=== PATIENT | female | born 2000 | race Caucasian/White ===

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

== ENCOUNTER 2020-04-26 15:00 | Emergency (ER) | payer BC, SELFPAY ==
[2020-04-26 15:40] VITALS: BP 128/82; PULSE 80; RESP 20; TEMP 36.9; O2SAT 99; BMI 47.2
--- NOTE | 2020-04-26 15:47 | HMH.EDUTC ---
[facility] [place] Disposition Clinical Impression: Strep throat Disposition: Home, Self-Care Condition on Discharge: Good Instructions: Strep Throat, DI for Strep Throat Additional Instructions: Drink plenty of fluids. Take tylenol or ibuprofen for pain or fever. Take the medications as directed. Follow up with your regular doctor. GO TO THE ER FOR ANY WORSENING SYMPTOMS Throw your tooth brush away and get a new one. Prescriptions: predniSONE [Deltasone 10mg tablet] 10 mg PO BID 3 Days #6 tab Transmission Status: Received by [facility] Azithromycin [Z-Sukhdev 250mg Tab*] 250 mg PO UD DOSE PK #6 tab Transmission Status: Received by [facility] Referrals: Kiar Mc APRN [Primary Care Provider] - Time of Disposition: 16:03 Medical Decision Making - Medical Records Medical records reviewed: No: I reviewed the patient's medical records. - Bhupinder Inquiry Pt receiving controlled substance: No Vital Signs: 04/26/20 15:40 04/26/20 16:22 Temperature 98.4 F 98.4 F Temperature Source Oral Pulse Rate 80 Pulse Rate [Right Brachial] 80 Respiratory Rate 20 20 Blood Pressure 128/82 Blood Pressure [Right Arm] 128/82 Blood Pressure Mean [Right Arm] 97 Blood Pressure Source [Right Arm] Automatic Cuff Blood Pressure Position [Right Arm] Sitting 02 Sat by Pulse Oximetry 99 Oxygen Delivery Method Room Air - Lab Data Lab results reviewed: Yes: I reviewed the patient's lab results. Lab Results 04/26/20 16:02: Strep Scn Rapid Clinic Negative Orders (Tests/Meds): ORDERS Category Date Time Status Strep Screen Confirmation Stat Micro 04/26/20 16:02 Received [facility] [place] HPI - General Stated complaint: sore throat Time Seen by Provider: 04/26/20 15:47 Mode of Arrival: Ambulatory Source of Information: Patient Limitations: No Limitations Description of Symptoms (Recalled from Triage Doc. by RN): PATIENT C/O THROAT IRRITATION SINCE THIS MORNING. DENIES ANY OTHER SYMPTOMS HEENT Symptoms (Recalled from RN notes): Yes Resp Symptoms (Recalled from RN notes): No Skin Symptoms (Recalled from RN notes): No MS Symptoms (Recalled from RN notes): No Functional Status (Recalled from RN notes): WNL - History of Present Illness Provider Complaint: She c/o sore throat since this morning. She states that she gets strep throat frequently. - Related Data Home Medications Medication Instructions Recorded Confirmed norgestimate-ethinyl estradioL 1 tab PO DAILY 11/07/19 11/07/19 [Tri-Sprintec Tablet] Previous Rx's Medication Instructions Recorded Azithromycin [Z-Sukhdev 250mg Tab*] 250 mg PO UD DOSE PK #6 tab 04/26/20 predniSONE [Deltasone 10mg tablet] 10 mg PO BID 3 Days #6 tab 04/26/20 Allergies Allergy/AdvReac Type Severity Reaction Status Date / Time amoxicillin Allergy Verified 09/18/19 12:23 - Worker's Comp Is this a Worker's Comp case?: No [facility] History - Hepatitis A Screen Drug use history?: No High risk sexual behaviors?: No History of sexually transmitted infection?: No Currently employed?: No Childcare worker?: No Do you have indoor plumbing?: Yes Do you have electricity?: Yes Attestation statement:: This patient has been screened for Hepatitis A risk factors. I have reviewed the patient's past medical history: Yes Other Surgeries: Yes: No Previous Surgery, Other Amputation: No Fractures: Yes (left wrist) Comment: Bone spur on left index finger removed. - Social History Smoking Status: Never smoker Alcohol Intake: never Substance Use Type: denies use Occupational Status: other Housing: house Household Members: family Family Hx:: Cancer, Diabetes, Heart Attack, Stroke, Hypertension ROS Obtained: Yes All systems reviewed & no additional complaints - Constitutional Constitutional: Reports chills, Denies fever(s), Reports poor appetite, Reports malaise - Eyes Eyes: Denies eye discharge - ENT Ears, Nose, Mouth, and Throat: Reports a
[2020-04-26 16:22] VITALS: BP 128/82; PULSE 80; RESP 20; TEMP 36.9; O2SAT 99
[2020-04-26 16:25] LABS: UTC Strep Screen (Rapid) Negative (Negative)
== END 2020-04-26 16:25 | disposition home or self-care (01) ==
PROVIDERS: Emergency Provider Nurse Practitioner Family; PCP Nurse Practitioner
DX: J02.0 Streptococcal pharyngitis (principal)
CPT/HCPCS: 87880; 99201

== ENCOUNTER 2020-06-14 14:50 | Emergency (ER) | payer BC, SELFPAY ==
[2020-06-14 15:22] VITALS: PULSE 98; RESP 14; TEMP 36.8; O2SAT 97; BMI 46.8
--- NOTE | 2020-06-14 15:35 | HMH.EDUTC ---
[facility] [place] Clinical Impression: URI (upper respiratory infection) Qualifiers: URI type: unspecified URI Qualified Code(s): J06.9 - Acute upper respiratory infection, unspecified Disposition: Home, Self-Care Condition on Discharge: Good Instructions: Sore Throat, DI for Strep Throat, Azithromycin Additional Instructions: *Monitor Temp, Over the counter Motrin or Tylenol as directed/as needed Tylenol every 4 hours and Motrin every 6 hours (as long as your family doctor has told you that you can take it) for fever or pain. and straight to ER if unable to lower temp less than 101.0 after medication given *Warm salt water gargles may help to soothe the throat *Throat Lozenges *Warm fluids like tea with honey may help to soothe the throat *Sleep elevated *Humidifier/Vaporizer Your throat swab was sent for culture. Those results are typically sent to your primary care. Be sure to follow up in 2-3 days with your family doctor/primary care physician if no improvement so they can review those result and treat if necessary. If you don?t have a primary care doctor, I recommend you get one but in the mean time, you will have to return to a walk in clinic Follow up IMMEDIATELY for new or worsening symptoms or no Noticeable improvement over the next 48-72 hours. 911 for difficulty breathing or swallowing Prescriptions: Azithromycin [Z-Sukhdev 250mg Tab] 250 mg PO DIRECTED #6 tab Transmission Status: Pending to [facility] Referrals: Kira Mc APRN [Primary Care Provider] - As needed Time of Disposition: 15:49 Medical Decision Making - Bhupinder Inquiry Pt receiving controlled substance: No Bhupinder was queried for this patient: No Vital Signs: 06/14/20 15:22 Temperature 98.3 F Temperature Source Oral Pulse Rate [Right Brachial] 98 H Respiratory Rate 14 02 Sat by Pulse Oximetry 97 Oxygen Delivery Method Room Air - Lab Data Lab results reviewed: Yes: I reviewed the patient's lab results. Lab Results 06/14/20 15:28: Strep Scn Rapid Clinic Negative Orders (Tests/Meds): ORDERS Category Date Time Status Strep Screen Confirmation Stat Micro 06/14/20 15:28 [place] [facility] [place] - General Stated complaint: sore throat Time Seen by Provider: 06/14/20 15:35 Mode of Arrival: Ambulatory Source of Information: Patient Limitations: No Limitations Description of Symptoms (Recalled from Triage Doc. by RN): PATIENT C/O SORE THROAT WITH BLISTERS THAT STARTED TODAY HEENT Symptoms (Recalled from RN notes): Yes Resp Symptoms (Recalled from RN notes): No Skin Symptoms (Recalled from RN notes): No MS Symptoms (Recalled from RN notes): No Functional Status (Recalled from RN notes): WNL - History of Present Illness Provider Complaint: Patient states that she has been having sore throat for several days and noticed earlier that she had some blisters on the back of her throat States that her throat is hurting worse today and she was worried that she may have strep throat - Related Data Previous Rx's Medication Instructions Recorded Azithromycin [Z-Sukhdev 250mg Tab] 250 mg PO DIRECTED #6 tab 06/14/20 Allergies Allergy/AdvReac Type Severity Reaction Status Date / Time amoxicillin Allergy Verified 09/18/19 12:23 - Worker's Comp Is this a Worker's Comp case?: No [facility] History - Hepatitis A Screen Drug use history?: No High risk sexual behaviors?: No History of sexually transmitted infection?: No Currently employed?: No Childcare worker?: No Do you have indoor plumbing?: Yes Do you have electricity?: Yes Attestation statement:: This patient has been screened for Hepatitis A risk factors. I have reviewed the patient's past medical history: Yes Other Surgeries: Yes: No Previous Surgery, Other Amputation: No Fractures: Yes (left wrist) Comment: Bone spur on left index finger removed. - Social History Smoking Status: Never smoker Alcohol Intake: never Substance Use Type:
[2020-06-14 15:41] LABS: UTC Strep Screen (Rapid) Negative (Negative)
[2020-06-14 15:58] VITALS: BP 00/00; PULSE 98; RESP 14; TEMP 36.8; O2SAT 97
== END 2020-06-14 16:00 | disposition home or self-care (01) ==
PROVIDERS: Emergency Provider Nurse Practitioner; PCP Nurse Practitioner
DX: J06.9 Acute upper respiratory infection, unspecified (principal); Z88.1 Allergy status to other antibiotic agents
CPT/HCPCS: 87880; 99201

== ENCOUNTER 2020-08-10 09:13 | Emergency (ER) | payer BC, SELFPAY ==
[2020-08-10 09:27] VITALS: BP 126/72; PULSE 80; RESP 19; TEMP 36.9; O2SAT 98; BMI 46.3
--- NOTE | 2020-08-10 09:51 | HMH.EDUTC ---
[facility] [place] Clinical Impression: URI (upper respiratory infection) Qualifiers: URI type: unspecified URI Qualified Code(s): J06.9 - Acute upper respiratory infection, unspecified Disposition: Home, Self-Care Condition on Discharge: Good Instructions: Sinusitis, DI for Sinusitis, Azithromycin Additional Instructions: *Monitor Temp, Over the counter Motrin or Tylenol as directed/as needed Tylenol every 4 hours and Motrin every 6 hours (as long as your family doctor has told you that you can take it) for fever or pain. and straight to ER if unable to lower temp less than 101.0 after medication given *Warm salt water gargles may help to soothe the throat *Throat Lozenges *Warm fluids like tea with honey may help to soothe the throat *Sleep elevated *Humidifier/Vaporizer *Flonase 2 sprays in each nostril daily but be aware that it may take 2-3 days before you notice improvement Take medication as prescribed Follow up IMMEDIATELY for new or worsening symptoms or no Noticeable improvement over the next 48-72 hours. 911 for difficulty breathing or swallowing Prescriptions: Fluticasone Propionate [Flonase 50mcg nasal spray 16gm] 1 spr NS DAILY #1 bottle Transmission Status: [facility] methylPREDNISolone [Medrol 4mg tab] 4 mg PO DIRECTED #21 tab Transmission Status: [facility] Azithromycin [Z-Sukhdev 250mg Tab] 250 mg PO DIRECTED #6 tab Transmission Status: [facility] Referrals: Kira Mc APRN [Primary Care Provider] - As needed Time of Disposition: 10:03 Medical Decision Making - Bhupinder Inquiry Pt receiving controlled substance: No Bhupinder was queried for this patient: No Vital Signs: 08/10/20 09:27 Temperature 98.4 F Temperature Source Oral Pulse Rate [Radial] 80 Respiratory Rate 19 Blood Pressure [Right Arm] 126/72 Blood Pressure Mean [Right Arm] 90 Blood Pressure Source [Right Arm] Automatic Cuff Blood Pressure Position [Right Arm] Sitting 02 Sat by Pulse Oximetry 98 Oxygen Delivery Method Room Air [facility] [place] HPI - General Stated complaint: runny nose Time Seen by Provider: 08/10/20 09:51 Mode of Arrival: Ambulatory Source of Information: Patient Limitations: No Limitations Description of Symptoms (Recalled from Triage Doc. by RN): sinus infection x 2 days HEENT Symptoms (Recalled from RN notes): Yes Resp Symptoms (Recalled from RN notes): No Skin Symptoms (Recalled from RN notes): No MS Symptoms (Recalled from RN notes): No Functional Status (Recalled from RN notes): wnl - History of Present Illness Provider Complaint: Patient states that she has been having sinus pain and pressure along with drainage for several days States that she has continued to get worse States that she gets this a couple times of years and has to come in and get checked - Related Data Previous Rx's Medication Instructions Recorded Azithromycin [Z-Sukhdev 250mg Tab] 250 mg PO DIRECTED #6 tab 08/10/20 Fluticasone Propionate [Flonase 1 spr NS DAILY #1 bottle 08/10/20 50mcg nasal spray 16gm] methylPREDNISolone [Medrol 4mg 4 mg PO DIRECTED #21 tab 08/10/20 tab] Allergies Allergy/AdvReac Type Severity Reaction Status Date / Time amoxicillin Allergy Verified 07/24/20 15:54 - Worker's Comp Is this a Worker's Comp case?: No [facility] History - Hepatitis A Screen Drug use history?: No High risk sexual behaviors?: No History of sexually transmitted infection?: No Currently employed?: No Childcare worker?: No Do you have indoor plumbing?: Yes Do you have electricity?: Yes Attestation statement:: This patient has been screened for Hepatitis A risk factors. I have reviewed the patient's past medical history: Yes Other Surgeries: Yes: No Previous Surgery, Other Amputation: No Fractures: Yes (left wrist) Comment: Bone spur on left index finger removed. - Social History Smoking Status: Never smoker Alcohol Intake: alfonso
[2020-08-10 10:31] VITALS: BP 126/72; PULSE 80; RESP 19; TEMP 36.9; O2SAT 98
== END 2020-08-10 10:32 | disposition home or self-care (01) ==
PROVIDERS: Emergency Provider Nurse Practitioner; PCP Nurse Practitioner
DX: J06.9 Acute upper respiratory infection, unspecified (principal)
CPT/HCPCS: 99201

== ENCOUNTER → 2020-12-23 09:49 | Outpatient (POV) | payer BC, SELFPAY | PROVIDERS: Visit Provider Dermatology | DX: Z00.00 Encounter for general adult medical examination without abnormal findings (principal) ==

== ENCOUNTER 2021-01-10 13:04 | Emergency (ER) | payer BC, SELFPAY ==
[2021-01-10 13:52] VITALS: BP 124/75; PULSE 84; RESP 19; TEMP 37; O2SAT 99; BMI 45.0
--- NOTE | 2021-01-10 14:12 | HMH.EDUTC ---
[facility] [place] Clinical Impression: Strep throat Sinusitis Qualifiers: Sinusitis location: maxillary Chronicity: acute Recurrence: non-recurrent Qualified Code(s): J01.00 - Acute maxillary sinusitis, unspecified Disposition: Home, Self-Care Condition on Discharge: Good Instructions: Sinusitis, DI for Sinusitis Additional Instructions: Start antibiotic patient to take as ordered for a full length of time even if you feel better. Sinus infections do not get better overnight. It may take 2-3 days to notice much improvement so be sure to use conservative measures as discussed for symptoms. Flonase 1 spray each nostril daily to help with nasal congestion, sinus and ear pressure/information Increase fluids Humidifier/vaporizer as needed Tylenol and ibuprofen as needed for fever or pain. If symptoms do not improve or get worse return or be seen in the ER Follow-up with primary care this week her request and will get her sent over Prescriptions: Fluticasone Propionate [Flonase 50mcg nasal spray 16gm] 1 spr NS DAILY 14 Days #1 bottle Transmission Status: Pending to [facility] Azithromycin [Zithromax 250mg tab] 250 mg PO DIRECTED #6 tab Transmission Status: Pending to [facility] Referrals: Kira Mc APRN [Primary Care Provider] - Time of Disposition: 14:17 Medical Decision Making - Bhupinder Inquiry Pt receiving controlled substance: No Vital Signs: 01/10/21 13:52 Temperature 98.6 F Temperature Source Oral Pulse Rate [Right] 84 Respiratory Rate 19 Blood Pressure [Right Arm] 124/75 Blood Pressure Mean [Right Arm] 91 Blood Pressure Source [Right Arm] Automatic Cuff 02 Sat by Pulse Oximetry 99 Oxygen Delivery Method Room Air [facility] [place] - General Chief complaint: [facility] Stated complaint: possible sinus infection Time Seen by Provider: 01/10/21 14:12 Mode of Arrival: Ambulatory Source of Information: Patient Limitations: No Limitations Description of Symptoms (Recalled from Triage Doc. by RN): pt c/o sinus pressure and drainage. she thinks she has a sinus infection. HEENT Symptoms (Recalled from RN notes): Yes (sinus pressure) Resp Symptoms (Recalled from RN notes): No Skin Symptoms (Recalled from RN notes): No MS Symptoms (Recalled from RN notes): No Functional Status (Recalled from RN notes): na - History of Present Illness Provider Complaint: 20 yr old female presents for sore throat, sinus pressure,congestion,tenderness and yellow/green discharge - Related Data Previous Rx's Medication Instructions Recorded Azithromycin [Z-Sukhdev 250mg Tab] 250 mg PO DIRECTED #6 tab 08/10/20 Fluticasone Propionate [Flonase 1 spr NS DAILY #1 bottle 08/10/20 50mcg nasal spray 16gm] methylPREDNISolone [Medrol 4mg 4 mg PO DIRECTED #21 tab 08/10/20 tab] Azithromycin [Zithromax 250mg 250 mg PO DIRECTED #6 tab 01/10/21 tab] Fluticasone Propionate [Flonase 1 spr NS DAILY 14 Days #1 bottle 01/10/21 50mcg nasal spray 16gm] Allergies Allergy/AdvReac Type Severity Reaction Status Date / Time amoxicillin Allergy Verified 07/24/20 15:54 - Worker's Comp Is this a Worker's Comp case?: No [facility] History - Hepatitis A Screen Drug use history?: No High risk sexual behaviors?: No History of sexually transmitted infection?: No Currently employed?: No Childcare worker?: No Do you have indoor plumbing?: Yes Do you have electricity?: Yes Attestation statement:: This patient has been screened for Hepatitis A risk factors. I have reviewed the patient's past medical history: Yes Other Surgeries: Yes: No Previous Surgery, Other Amputation: No Fractures: Yes (left wrist) Comment: Bone spur on left index finger removed. - Social History Smoking Status: Unknown if ever smoked Alcohol Intake: never Substance Use Type: denies use Occupational Status: employed Housing: house Household Members: family Family Hx:: Cancer, Diabetes, Heart Zaki
[2021-01-10 14:20] VITALS: BP 119/74; PULSE 82; RESP 16; TEMP 36.6
== END 2021-01-10 14:23 | disposition home or self-care (01) ==
PROVIDERS: Emergency Provider Nurse Practitioner Family; PCP Nurse Practitioner
DX: J02.0 Streptococcal pharyngitis (principal); J01.00 Acute maxillary sinusitis, unspecified; Z88.1 Allergy status to other antibiotic agents
CPT/HCPCS: 99202; G0463

== ENCOUNTER 2021-01-25 19:43 | Emergency (ER) | payer BC, SELFPAY ==
[2021-01-25 19:45] VITALS: BP 128/80; PULSE 95; RESP 20; TEMP 36.7; O2SAT 97; BMI 46.0
--- NOTE | 2021-01-25 20:19 | HMH.EDUTC ---
[facility] [place] Clinical Impression: Vaginal yeast infection Disposition: Home, Self-Care Condition on Discharge: Good Instructions: DI for Vaginal Yeast Infection, Vaginal Yeast Infection, Fluconazole Additional Instructions: Take medication as prescribed Avoid sexual activity while undergoing treatment Follow up with Family Doctor or OBGYN if symptoms continue and do not improve Return if needed Straight to ER if any life threatening symptoms Prescriptions: Fluconazole [Diflucan 150mg tab] 150 mg PO DIRECTED #2 tab Transmission Status: Pending to [facility] Referrals: Kira Mc APRN [Primary Care Provider] - As needed Time of Disposition: 20:35 Medical Decision Making - Bhupinder Inquiry Pt receiving controlled substance: No Bhupinder was queried for this patient: No Vital Signs: 01/25/21 19:45 Temperature 98.1 F Temperature Source Oral Pulse Rate [Left Brachial] 95 H Respiratory Rate 20 Blood Pressure [Left Arm] 128/80 Blood Pressure Mean [Left Arm] 96 Blood Pressure Source [Left Arm] Automatic Cuff Blood Pressure Position [Left Arm] Sitting 02 Sat by Pulse Oximetry 97 Oxygen Delivery Method Room Air Medical Decision Narrative: Patient states that she has taken diflucan before [facility] [place] HPI - General Stated complaint: yeast inf Time Seen by Provider: 01/25/21 20:19 Mode of Arrival: Ambulatory Source of Information: Patient Limitations: No Limitations Description of Symptoms (Recalled from Triage Doc. by RN): PATIENT C/O YEAST INFECTION X 1 WEEK. SHE REPORTS TAKING MONISTAT AND DIFLUCAN WITH NO IMPROVEMENT HEENT Symptoms (Recalled from RN notes): No Resp Symptoms (Recalled from RN notes): No Skin Symptoms (Recalled from RN notes): No MS Symptoms (Recalled from RN notes): No Functional Status (Recalled from RN notes): WNL - History of Present Illness Provider Complaint: Patient states she has been having a vaginal yeast infection for about a week States that she took a diflucan on Tuesday and has used over the counter Monostat but still having some white thick discharge and burning with itching States that she sometimes gets these before her period every month - Related Data Previous Rx's Medication Instructions Recorded Fluconazole [Diflucan 150mg tab] 150 mg PO DIRECTED #2 tab 01/25/21 Allergies Allergy/AdvReac Type Severity Reaction Status Date / Time amoxicillin Allergy Verified 07/24/20 15:54 - Worker's Comp Is this a Worker's Comp case?: No [facility] History - Hepatitis A Screen Drug use history?: No High risk sexual behaviors?: No History of sexually transmitted infection?: No Currently employed?: No Childcare worker?: No Do you have indoor plumbing?: Yes Do you have electricity?: Yes Attestation statement:: This patient has been screened for Hepatitis A risk factors. I have reviewed the patient's past medical history: Yes Other Surgeries: Yes: No Previous Surgery, Other Amputation: No Fractures: Yes (left wrist) Comment: Bone spur on left index finger removed. - Social History Smoking Status: Unknown if ever smoked Alcohol Intake: never Substance Use Type: denies use Occupational Status: other Housing: house Household Members: family Family Hx:: Cancer, Diabetes, Heart Attack, Stroke, Hypertension ROS Obtained: Yes All systems reviewed & no additional complaints, Yes Systems reviewed as appropriate & no additional complaints - Constitutional Constitutional: Reports system reviewed and no additional complaints, except as docu - Cardiovascular Cardiovascular: Reports system reviewed and no additional complaints, except as docu - Respiratory Respiratory: Reports system reviewed and no additional complaints, except as docu - Genitourinary Female Genitourinary: Reports vaginal discharge, Reports vaginal itching Physical Exam - General General appearance: alert, in no apparent distress - Respiratory Respiratory exam: Present:
[2021-01-25 20:34] VITALS: BP 128/80; PULSE 95; RESP 20; TEMP 36.7; O2SAT 97
== END 2021-01-25 20:40 | disposition home or self-care (01) ==
PROVIDERS: Emergency Provider Nurse Practitioner; PCP Nurse Practitioner
DX: B37.3 Candidiasis of vulva and vagina (principal)
CPT/HCPCS: 99202; G0463

== ENCOUNTER → 2021-03-23 13:14 | Outpatient (CLI) | payer BC, SELFPAY ==
[2021-03-23 13:24] LABS: Microscopic, Urine URINE MICROSCOPIC (MICROSCOPIC)
[2021-03-23 13:44] LABS: Basophils # 0.1 K/mm3 (0-0.2); Basophils % 0.4 % (0.1-2.0); Eosinophils # 0.1 K/mm3 (0.0-0.4); Eosinophils % 0.7 % (0.1-12.0); Hematocrit 39.1 % (37.0-47.0); Lymphocytes # 2.8 K/mm3 (0.7-4.5); Lymphocytes % 22.3 % (10-50); Mean Corpuscular HGB Conc 33.2 g/dL (31.8-35.4); Mean Corpuscular Hemoglobin 27.3 pg (27.0-31.2); Mean Corpuscular Volume 82.3 fl (81-99); Mean Platelet Volume 8.2 fl (7.4-10.4); Monocytes # 0.6 K/mm3 (0.1-1.0); Monocytes % 4.4 % (1.7-9.3); Neutrophils % 72.1 % (37.0-80.0); Platelet Count 278 K/mm3 (142-424); Red Blood Count 4.76 M/mm3 (4.20-5.40); Red Cell Distribution Width 14.4 % (11.5-17.5); White Blood Count 12.5 K/mm3 (4.8-10.8)
[2021-03-23 13:49] LABS: Appearance,Urine SL CLOUDY (Clear); Blood, Urine 1+ (Negative); Color,Urine DK YELLOW (Yellow); Glucose,Urine (UA) Negative (Negative); Ketones,Urine Negative (Negative); Leukocyte Esterase,Urine Negative (Negative); Nitrate,Urine Negative (Negative); PH,Urine 5.5 (5.0-8.5); Protein,Urine Negative (Negative); Specific Gravity, Urine >= 1.030 (1.005-1.030); Urobilinogen,Urine 0.2 EU/dl (0.2)
[2021-03-23 13:53] LABS: Bilirubin,Urine 1+ (Negative)
[2021-03-23 14:18] LABS: Bacteria,Urine Trace /lpf
[2021-03-23 14:40] LABS: Chloride 106 mmol/L (98-107); Sodium 139 mmol/L (136-145)
[2021-03-23 14:41] LABS: Potassium 4.1 mmoL/L (3.5-5.1)
[2021-03-23 14:43] LABS: Alanine Aminotransferase 20 U/L (12-78); Albumin Level 4.2 g/dl (3.5-5.0); Albumin/Globulin Ratio 1.4 (1.1-1.8); Alkaline Phosphatase 84 U/L (38-126); Anion Gap 12.1 mEq/L (5-15); Aspartate Amino Transferase 25 U/L (14-36); Bilirubin,Total 0.5 mg/dl (0.2-1.3); Blood Urea Nitrogen 8 mg/dl (7-17); Carbon Dioxide 25 mmol/L (22.0-30.0); Estimated Glomerular Filt Rate 125 ml/min (>60); GFR (African American) 151 ML/MIN (>60); Globulin 3.1 g/dL (1.3-3.2); Total Protein,Serum 7.3 g/dl (6.3-8.2)
[2021-03-23 14:44] LABS: Calcium 8.9 mg/dl (8.4-10.2); Glucose 86 mg/dl (74-100)
[2021-03-25 07:03] LABS: HIV Screen 4th Generation wRfx Non Reactive (Non Reactive)
[2021-03-25 15:38] LABS: EBV Ab VCA, IgG >600.0 U/mL (0.0-17.9); EBV Ab VCA, IgM <36.0 U/mL (0.0-35.9); EBV Nuclear Antigen Ab, IgG 53.3 U/mL (0.0-17.9)
[2021-03-26 21:26] LABS: CMV Quant DNA PCR (Plasma) Negative (Negative)
== END ==
PROVIDERS: Visit Provider Internal Medicine Adolescent Medicine
DX: J02.9 Acute pharyngitis, unspecified (principal); A68.9 Relapsing fever, unspecified; R30.0 Dysuria; Z11.4 Encounter for screening for human immunodeficiency virus [HIV]
CPT/HCPCS: 36415; 80053; 81001; 85025; 86664; 86665; 86695; 86696; 86703; 87070; 87077; 87186; 87252; 87497; G0432

== ENCOUNTER 2021-08-06 08:59 | Emergency (ER) | payer BC, SELFPAY ==
[2021-08-06 09:10] VITALS: BP 142/86; PULSE 120; RESP 18; TEMP 36.6; O2SAT 100; BMI 47.9
[2021-08-06 09:28] LABS: UTC Strep Screen (Rapid) Positive (Negative)
--- NOTE | 2021-08-06 09:34 | HMH.EDUTC ---
[facility] [place] Clinical Impression: Strep throat Disposition: Home, Self-Care Condition on Discharge: Good Instructions: Strep Throat, DI for Strep Throat, Azithromycin Additional Instructions: *Monitor Temp, Over the counter Motrin or Tylenol as directed/as needed Tylenol every 4 hours and Motrin every 6 hours (as long as your family doctor has told you that you can take it) for fever or pain. and straight to ER if unable to lower temp less than 101.0 after medication given *Warm salt water gargles may help to soothe the throat *Throat Lozenges *Warm fluids like tea with honey may help to soothe the throat *Sleep elevated *Humidifier/Vaporizer *If you did not take Penicillin shot or was unable to, start taking antibiotic immediately and make sure that you take it for the FULL length of time although you should start to feel better in 24-48 hours *change toothbrush and toothpaste 24-48 hours after starting to take antibiotics so you do not reinfect yourself Monitor Temp. Tylenol and/or Ibuprofen as needed. ER if fever is no less than 101 despite alternating Tylenol and Ibuprofen * Encourage fluids, water, Gatorade, powerade, pedialyte if /toddler/or child *Cold fluids, popsicles and ice cream may feel good on his throat Follow up IMMEDIATELY for new or worsening symptoms or no Noticeable improvement over the next 48-72 hours. 911 for difficulty breathing or swallowing Prescriptions: Azithromycin [Z-Sukhdev 250mg Tab] 250 mg PO DIRECTED #6 tab Transmission Status: Pending to [facility] Referrals: Kira Mc APRN [Primary Care Provider] - As needed Forms: Work/School Release Time of Disposition: 09:39 Medical Decision Making - Bhupinder Inquiry Pt receiving controlled substance: No Bhupinder was queried for this patient: No Vital Signs: 08/06/21 09:10 Temperature 98 F Temperature Source Oral Pulse Rate [Left] 120 H Respiratory Rate 18 Blood Pressure [Right Arm] 142/86 H Blood Pressure Mean [Right Arm] 104 02 Sat by Pulse Oximetry 100 - Lab Data Lab results reviewed: Yes: I reviewed the patient's lab results. Lab Results 08/06/21 09:22: Strep Scn Rapid Clinic Positive A [facility] [place] - General Stated complaint: sore throat Time Seen by Provider: 08/06/21 09:34 Mode of Arrival: Ambulatory Source of Information: Patient Limitations: No Limitations Description of Symptoms (Recalled from Triage Doc. by RN): pt c/o of a sore throat. pt states multiple people at her work have strep. tonsils appear appear swollen and red. pt also states she is having an HSV outbreak and has blisters in her mouth and on her tongue. HEENT Symptoms (Recalled from RN notes): Yes (sore throat. blisters in mouth from hsv outbreak.) Resp Symptoms (Recalled from RN notes): No Skin Symptoms (Recalled from RN notes): No MS Symptoms (Recalled from RN notes): No Functional Status (Recalled from RN notes): na - History of Present Illness Provider Complaint: Patient states that she has a history of HSV and recently started having an outbreak and has been taking her Valtrex States that her throat is still sore and irritated and hurts when she swallows and feels different for previous outbreaks she has had Statse that several people at work has strep throat and she thinks she may have it too - Related Data Previous Rx's Medication Instructions Recorded Fluconazole [Diflucan 150mg tab] 150 mg PO DIRECTED #2 tab 01/25/21 Azithromycin [Z-Sukhdev 250mg Tab] 250 mg PO DIRECTED #6 tab 08/06/21 Allergies Allergy/AdvReac Type Severity Reaction Status Date / Time amoxicillin Allergy Verified 07/24/20 15:54 - Worker's Comp Is this a Worker's Comp case?: No [facility] History - Hepatitis A Screen Drug use history?: No High risk sexual behaviors?: No History of sexually transmitted infection?: No Currently employed?: No Childcare worker?: No Do you have indoor plumbing?: Yes Do you have electricity?
[2021-08-06 09:46] VITALS: BP 142/86; PULSE 120; RESP 18; TEMP 36.6
== END 2021-08-06 10:05 | disposition home or self-care (01) ==
PROVIDERS: Emergency Provider Nurse Practitioner; PCP Nurse Practitioner
DX: J02.0 Streptococcal pharyngitis (principal)
CPT/HCPCS: 87880; 99202; G0463

== ENCOUNTER 2021-08-07 16:47 | Emergency (ER) | payer BC, SELFPAY ==
--- NOTE | 2021-08-07 16:50 | XR_ITS ---
PROCEDURE INFORMATION: Exam: XR Left Hand Exam date and time: 08/07/2021 4:50 PM Age: 21 years old Clinical indication: Injury or trauma; Fall; Blunt trauma (contusions or hematomas); Hand; Left; Injury date: 08/06/21 TECHNIQUE: Imaging protocol: XR Left hand. Views: 3 or more views. COMPARISON: CR [id number] XR wrist LT 2V 12/27/2017 1:28 PM FINDINGS: Bones/joints: There is no evidence of acute fracture. There is no evidence of joint malalignment or dislocation. Soft tissues: No focal soft tissue swelling. IMPRESSION: 1. No evidence of acute fracture. 2. No evidence of acute dislocation.
--- NOTE | 2021-08-07 16:50 | XR_ITS ---
PROCEDURE INFORMATION: Exam: XR Left Wrist Exam date and time: 08/07/2021 4:50 PM Age: 21 years old Clinical indication: Injury or trauma; Fall; Blunt trauma (contusions or hematomas); Wrist; Left; Injury date: 08/06/21 TECHNIQUE: Imaging protocol: XR Left wrist. Views: 3 or more views. COMPARISON: CR [id number] XR wrist LT 2V 12/27/2017 1:28 PM FINDINGS: Bones/joints: There is no evidence of acute fracture. There is no evidence of joint malalignment or dislocation. Soft tissues: No focal soft tissue swelling. IMPRESSION: 1. No evidence of acute fracture. 2. No evidence of acute dislocation.
--- NOTE | 2021-08-07 17:03 | XR_ITS ---
PROCEDURE INFORMATION: Exam: XR Left Forearm Exam date and time: 08/07/2021 5:03 PM Age: 21 years old Clinical indication: Injury or trauma; Fall; Blunt trauma (contusions or hematomas); Arm, lower; Left; Injury date: 08/06/21 TECHNIQUE: Imaging protocol: XR Left forearm. Views: 2 views. COMPARISON: CR XR WRIST LT MIN 3V 08/07/2021 4:56 PM FINDINGS: Bones/joints: There is no evidence of acute fracture. There is no evidence of joint malalignment or dislocation. Soft tissues: No focal soft tissue swelling. IMPRESSION: 1. No evidence of acute fracture. 2. No evidence of acute dislocation.
[2021-08-07 17:17] VITALS: BP 155/96; PULSE 107; RESP 20; TEMP 36.6; O2SAT 100; BMI 47.9
--- NOTE | 2021-08-07 17:33 | HMH.EDUTC ---
[facility] [place] Clinical Impression: Arm contusion Qualifiers: Encounter type: initial encounter Laterality: left Qualified Code(s): S40.022A - Contusion of left upper arm, initial encounter Wrist sprain Qualifiers: Encounter type: initial encounter Laterality: left Qualified Code(s): S63.502A - Unspecified sprain of left wrist, initial encounter Disposition: Home, Self-Care Condition on Discharge: Good Instructions: How To Perform RICE (Rest, Ice, Compress, Elevate), How to Apply an Jeevan Wrap Additional Instructions: *RICE, Rest the extremity, Ice 15-20 minutes 3-4 times daily, Compress- wear the jeevan wrap as discussed as much as possible to help reduce swelling and pain, Elevate the extremity when at rest *Jeevan wrap is for support and help control swelling, use it except in the shower. Be sure that is not to tight but not to loose either *Elevate when resting *Ibuprofen as directed on package every 6-8 hours as needed for pain an inflammation. If need something more can take Tylenol in between doses of Ibuprofen to help Immediately follow up with your family doctor for new or worsening of symptoms, or no noticeable improvement over the next 3-5 days Referrals: Kira Mc APRN [Primary Care Provider] - As needed Time of Disposition: 17:41 Medical Decision Making - Bhupinder Inquiry Pt receiving controlled substance: No Bhupinder was queried for this patient: No Vital Signs: 08/07/21 17:17 Temperature 98 F Temperature Source Temporal Artery Scan Pulse Rate [Left] 107 H Respiratory Rate 20 Blood Pressure [Right Arm] 155/96 H Blood Pressure Mean [Right Arm] 115 02 Sat by Pulse Oximetry 100 Orders (Tests/Meds): ORDERS Category Date Time Status Hand XR left minimum 3 views [XR hand LT min 3V] Stat Exams 08/07/21 16:50 Taken XR forearm LT 2V Stat Exams 08/07/21 17:03 Taken XR wrist LT min 3V Stat Exams 08/07/21 16:50 Taken - Radiology Data #1 Image(s): Forearm Image Reviewed: Yes I have reviewed radiologist's interpretation Preliminary Findings: No Fracture Seen IMPRESSION: 1. No evidence of acute fracture. 2. No evidence of acute dislocation. #2 Image(s): Wrist Image Reviewed: Yes I have reviewed radiologist's interpretation IMPRESSION: 1. No evidence of acute fracture. 2. No evidence of acute dislocation. #3 Image(s): Hand Image Reviewed: Yes I have reviewed radiologist's interpretation IMPRESSION: 1. No evidence of acute fracture. 2. No evidence of acute dislocation. [facility] [place]PI - General Stated complaint: AO fall injured L arm Time Seen by Provider: 08/07/21 17:34 Mode of Arrival: Ambulatory Source of Information: Patient Limitations: No Limitations Description of Symptoms (Recalled from Triage Doc. by RN): pt fell last night while letting the dogs outside. pt landed on her L arm. pt now c/o pain in her LFA, wrist and hand. HEENT Symptoms (Recalled from RN notes): No Resp Symptoms (Recalled from RN notes): No Skin Symptoms (Recalled from RN notes): No MS Symptoms (Recalled from RN notes): Yes (LFA, Lwrist and L hand pain) Functional Status (Recalled from RN notes): na - History of Present Illness Provider Complaint: Patient states that she was opening her back door last night letting her dogs out and she slipped and fell and landed on her left arm States that she has been having pain and bruising ever since States that hurts when she moves it States that she feels like there is a little knot on her wrist so she wanted to come in and get it checked out - Related Data Previous Rx's Medication Instructions Recorded Fluconazole [Diflucan 150mg tab] 150 mg PO DIRECTED #2 tab 01/25/21 Azithromycin [Z-Sukhdev 250mg Tab] 250 mg PO DIRECTED #6 tab 08/06/21 Allergies Allergy/AdvReac Type Severity Reaction Status Date / Time amoxicillin Allergy Verified 07/24/20 15:54 - Worker's Comp Is this a Worker's Comp case?: No [facility] History
[2021-08-07 17:43] VITALS: BP 112/60; PULSE 73; RESP 16; TEMP 36.8
== END 2021-08-07 17:46 | disposition home or self-care (01) ==
PROVIDERS: Emergency Provider Nurse Practitioner; PCP Nurse Practitioner
DX: S40.022A Contusion of left upper arm, initial encounter (principal); S63.502A Unspecified sprain of left wrist, initial encounter; W01.0XXA Fall on same level from slipping, tripping and stumbling without subsequent striking against object, initial encounter; Y92.018 Other place in single-family (private) house as the place of occurrence of the external cause
CPT/HCPCS: 73090; 73110; 73130; 99202; G0463

== ENCOUNTER → 2021-12-01 09:20 | Outpatient (CLI) | payer BC, SELFPAY ==
[2021-12-02 07:14] LABS: Rubella Antibodies, IgG 3.58 index (Immune >0.99)
[2021-12-02 09:13] LABS: Hepatitis B Surf Ab Quant <3.1 mIU/mL (Immunity>9.9)
[2021-12-02 16:36] LABS: Measles Antibodies, IgG >300.0 AU/mL (Immune >16.4); Mumps Abs, IgG 57.1 AU/mL (Immune >10.9); Varicella Zoster IgG 274 index (Immune >165)
[2021-12-03 22:07] LABS: QuantiFERON-TB Gold Plus Negative (Negative)
== END ==
PROVIDERS: Visit Provider Nurse Practitioner Family
DX: Z01.84 Encounter for antibody response examination (principal); Z11.59 Encounter for screening for other viral diseases
CPT/HCPCS: 36415; 86480; 86706; 86735; 86762; 86765; 86787

== ENCOUNTER 2022-04-17 09:14 | Emergency (ER) | payer BC, SELFPAY ==
[2022-04-17 10:20] VITALS: BP 130/84; PULSE 81; RESP 17; TEMP 36.7; O2SAT 99; BMI 47.9
--- NOTE | 2022-04-17 10:32 | HMH.EDUTC ---
[facility] [place] Impression: COVID-19 Disposition: Home, Self-Care Condition on Discharge: Good Instructions: DI for COVID-19 (Suspected or Confirmed ) Additional Instructions: Current CDC guidelines are to quarantine for 5 days from symptom onset and until symptom free Prescriptions: predniSONE [Prednisone 20mg Tab] 20 mg PO BID 5 Days #10 tab Transmission Status: Pending to [facility] Pseudoephedrine HCl [Sudafed 12 Hour 120mg Tab] 120 mg PO Q12 10 Days #20 tab Transmission Status: Pending to [facility] Azithromycin [Zithromax 250mg tab] 250 mg PO DIRECTED #6 tab Transmission Status: Pending to [facility] Referrals: Kira Mc APRN [Primary Care Provider] - Time of Disposition: 10:52 Medical Decision Making - Bhupinder Inquiry Pt receiving controlled substance: No Vital Signs: 04/17/22 10:20 Temperature 98.0 F Temperature Source Oral Pulse Rate [Right Brachial] 81 Respiratory Rate 17 Blood Pressure [Right Arm] 130/84 Blood Pressure Mean [Right Arm] 99 Blood Pressure Source [Right Arm] Automatic Cuff Blood Pressure Position [Right Arm] Sitting 02 Sat by Pulse Oximetry 99 Oxygen Delivery Method Room Air [facility] [place] General Stated complaint: congestion, runny nose, h/a, diarrhea Time Seen by Provider: 04/17/22 10:32 - History of Present Illness Provider Complaint: Congestion, headache, runny nose, diarrhea X 2-3 days. Boyfriend tested positive for COVID19 last week on 04/12. She tested positive last night at work. She is not feeling terribly poorly, but cannot breathe out of her nose. Onset (ago): day(s) (3) Location: head Radiation: non-radiation Severity: mild Consistency: constant Relieving factors: none Exacerbating factors: none Associated symptoms: malaise Treatments prior to arrival: none - Related Data Previous Rx's Medication Instructions Recorded Fluconazole [Diflucan 150mg tab] 150 mg PO DIRECTED #2 tab 01/25/21 Azithromycin [Z-Sukhdev 250mg Tab] 250 mg PO DIRECTED #6 tab 08/06/21 Azithromycin [Zithromax 250mg 250 mg PO DIRECTED #6 tab 04/17/22 tab] Pseudoephedrine HCl [Sudafed 12 120 mg PO Q12 10 Days #20 tab 04/17/22 Hour 120mg Tab] predniSONE [Prednisone 20mg 20 mg PO BID 5 Days #10 tab 04/17/22 Tab] Allergies Allergy/AdvReac Type Severity Reaction Status Date / Time amoxicillin Allergy Verified 07/24/20 15:54 [facility] History - Hepatitis A Screen Attestation statement:: This patient has been screened for Hepatitis A risk factors. I have reviewed the patient's past medical history: Yes Other Surgeries: Yes: No Previous Surgery, Other Amputation: No Fractures: Yes (left wrist) Comment: Bone spur on left index finger removed. - Social History Smoking Status: Unknown if ever smoked Alcohol Intake: never Substance Use Type: denies use Occupational Status: other Housing: house Household Members: family Family Hx:: Cancer, Diabetes, Heart Attack, Stroke, Hypertension ROS Obtained: Yes All systems reviewed & no additional complaints - Constitutional Constitutional: Reports headache(s), Reports malaise - ENT Ears, Nose, Mouth, and Throat: Reports nasal congestion, Reports sore throat - Gastrointestinal Gastrointestingal: Reports: diarrhea Physical Exam - General General appearance: alert, in no apparent distress - Head Head exam: normocephalic - Eye Eye exam: Present: PERRL - ENT ENT exam: Present: normal oropharynx, TM's normal bilaterally - Neck Neck exam: Present: normal inspection. Absent: lymphadenopathy - Chest Chest inspection: Present: normal inspection, symmetric chest wall rise - Respiratory Respiratory exam: Present: normal lung sounds bilaterally - Cardiovascular Cardiovascular exam: Present: regular rate, normal rhythm - Neurological Exam Neurological exam: Present: alert, oriented X3 - Psychiatric Psychiatric exam: Present: nor
[2022-04-17 12:34] VITALS: BP 130/84; PULSE 81; RESP 17; TEMP 36.7; O2SAT 99
== END 2022-04-17 12:47 | disposition home or self-care (01) ==
PROVIDERS: Emergency Provider Physician Assistant; PCP Nurse Practitioner
DX: U07.1 COVID-19 (principal); R09.81 Nasal congestion; R51.9 Headache, unspecified; R53.81 Other malaise
CPT/HCPCS: 99212; G0463

== ENCOUNTER → 2022-06-21 16:42 | Outpatient (CLI) | payer BC, SELFPAY ==
[2022-06-21 18:19] LABS: Basophils # 0.1 K/mm3 (0-0.2); Basophils % 0.8 % (0.1-2.0); Eosinophils # 0.3 K/mm3 (0.0-0.4); Eosinophils % 1.9 % (0.1-12.0); Hematocrit 41.9 % (37.0-47.0); Lymphocytes # 4.5 K/mm3 (0.7-4.5); Mean Corpuscular HGB Conc 31.1 g/dL (31.8-35.4); Mean Corpuscular Hemoglobin 26.2 pg (27.0-31.2); Mean Corpuscular Volume 84.3 fl (81-99); Mean Platelet Volume 7.8 fl (7.4-10.4); Monocytes # 0.5 K/mm3 (0.1-1.0); Monocytes % 3.6 % (1.7-9.3); Neutrophils # 7.9 K/mm3 (1.8-7.8); Neutrophils % 59.5 % (37.0-80.0); Platelet Count 407 K/mm3 (142-424); Red Blood Count 4.97 M/mm3 (4.20-5.40); White Blood Count 13.3 K/mm3 (4.8-10.8)
[2022-06-21 20:35] LABS: Hemoglobin A1C 5.2 % (4.0-6.0)
[2022-06-21 20:45] LABS: Alanine Aminotransferase 18 U/L (12-78); Albumin Level 4.1 g/dl (3.5-5.0); Albumin/Globulin Ratio 1.3 (1.1-1.8); Alkaline Phosphatase 73 U/L (38-126); Anion Gap 17.1 mEq/L (5-15); Aspartate Amino Transferase 21 U/L (14-36); Blood Urea Nitrogen 16 mg/dl (7-17); Calcium 9.1 mg/dl (8.4-10.2); Carbon Dioxide 28 mmol/L (22.0-30.0); Chloride 101 mmol/L (98-107); Estimated Glomerular Filt Rate 104 ml/min (>60); GFR (African American) 125 ML/MIN (>60); Globulin 3.1 g/dL (1.3-3.2); Glucose 96 mg/dl (74-100); Potassium 4.1 mmoL/L (3.5-5.1); Sodium 142 mmol/L (136-145); Total Protein,Serum 7.2 g/dl (6.3-8.2)
[2022-06-21 20:54] LABS: Bilirubin,Total < 0.1 mg/dl (0.2-1.3)
[2022-06-21 21:17] LABS: Thyroid Stimulating Hormone 1.63 uIU/mL (0.465-4.68)
== END ==
PROVIDERS: PCP Nurse Practitioner Family; Visit Provider Nurse Practitioner Family
DX: R79.89 Other specified abnormal findings of blood chemistry (principal)
CPT/HCPCS: 36415; 80053; 83036; 84443; 85025

== ENCOUNTER 2022-09-01 10:56 | Emergency (ER) | payer BC, SELFPAY ==
[2022-09-01 11:32] VITALS: BP 120/64; PULSE 86; RESP 18; O2SAT 100; BMI 48.6
[2022-09-01 11:49] VITALS: BP 120/64; PULSE 86; RESP 18; TEMP 36.8; O2SAT 100; BMI 48.6
--- NOTE | 2022-09-01 11:49 | XR_ITS ---
FINAL REPORT CLINICAL HISTORY: LEFT HAND PAIN hit into door frame today COMPARISON: 08/07/2021 FINDINGS: LEFT HAND: 3 views of the left hand were obtained. There is no acute fracture or dislocation. Visualized joint spaces are normally aligned. Soft tissues are unremarkable. IMPRESSION: No acute bony abnormality. Reviewed, Interpreted and Dictated by Ankit Almaraz III, MD Transcribed by Sherly Duvall Authenticated and [facility]
--- NOTE | 2022-09-01 11:49 | XR_ITS ---
FINAL REPORT CLINICAL HISTORY: pain,, hit into door frame today COMPARISON: 08/07/2021 FINDINGS: LEFT WRIST 3 views were obtained. There is no acute fracture or dislocation. The joint spaces are intact. There is no soft tissue abnormality. IMPRESSION: No acute bony abnormality. Reviewed, Interpreted and Dictated by Ankit Almaraz III, MD Transcribed by Sherly Duvall Authenticated and [facility]
--- NOTE | 2022-09-01 11:51 | EXP.UTC ---
Discharge Plan Disposition Patient Disposition: Home, Self-Care Condition: Good Prescriptions Prescriptions: New ibuprofen [IBU] 800 mg tablet 800 mg PO Q8HP PRN (Reason: Moderate Pain) Qty: 30 0RF No Action fluconazole 150 MG tablet 150 mg PO DIRECTED Qty: 2 0RF Rx Instructions: Take one now and wait 72 hours and take second dose of medication azithromycin 250 MG tablet 250 mg PO DIRECTED Qty: 6 0RF Rx Instructions: Take two (2) tablets on day #1, then one (1) tablet day #2 thru #5 azithromycin 250 MG tablet 250 mg PO DIRECTED Qty: 6 0RF Rx Instructions: Take two (2) tablets on day #1, then one (1) tablet day #2 thru #5 prednisone 20 MG tablet 20 mg PO BID 5 Days Qty: 10 0RF pseudoephedrine HCl 120 MG tablet extended release 120 mg PO Q12 10 Days Qty: 20 0RF Referrals Follow up/Referrals: Kira Mc APRN [Primary Care Provider] - See instructions Jeremy Melendez JR, MD [Physician] - See instructions Activity Restrictions/Add. Instructions Additional Instructions/Restrictions: Rest the extremity, apply ice for 15 minutes as tolerated three or four times per day, Wear the angy wrap for compression, Elevate the extremity as tolerated while you are resting. Take ibuprofen for pain. I sent in a prescription to your pharmacy. Follow up with Dr. Melendez (orthopedics). I put in a referral but you need to call his office and schedule an appointment. Follow up with your regular doctor. GO TO THE ER FOR ANY WORSENING SYMPTOMS Clinical Impressions Clinical Impression: Contusion of left wrist, Left wrist sprain, Sprain of left hand Stand Alone Forms Stand Alone Forms: Work/School Release Instructions Patient Instructions: DI for Wrist Sprain, Wrist Sprain Discharge ED Provider: Avel Ayon [facility] General Stated complaint: LT arm pain AO@home 09/01 Mode of Arrival: Ambulatory Source of Information: Patient Limitations: No Limitations Time Seen by Provider: 09/01/22 11:49 Description of Symptoms (Recalled from Triage Doc. by RN): pt comes in with c/o left wrist pain. HEENT Symptoms (Recalled from RN notes): No Resp Symptoms (Recalled from RN notes): No Skin Symptoms (Recalled from RN notes): No MS Symptoms (Recalled from RN notes): Yes Functional Status (Recalled from RN notes): n/a History of Present Illness Provider Complaint: She states that she was taking her large dog out this morning when he jerk the leash and caused her to hit her left hand and wrist into a door frame. She has had left wrist and and hand pain and stiffness since then. She denies any other injury. Related Data Previous Rx's Medication Instructions Recorded fluconazole 150 mg tablet 150 mg PO DIRECTED #2 tabs 01/25/21 azithromycin 250 mg tablet 250 mg PO DIRECTED #6 tabs 08/06/21 azithromycin 250 mg tablet 250 mg PO DIRECTED #6 tabs 04/17/22 prednisone 20 mg tablet 20 mg PO BID 5 days #10 tabs 04/17/22 pseudoephedrine HCl 120 mg 120 mg PO Q12 10 days #20 tabs 04/17/22 tablet,extended release ibuprofen 800 mg tablet (IBU) 800 mg PO Q8HP PRN Moderate Pain 09/01/22 #30 tabs Allergies Allergy/AdvReac Type Severity Reaction Status Date / Time amoxicillin Allergy Verified 09/01/22 11:51 Worker's Comp Is this a Worker's Comp case?: No PFSH PFSH Social History Smoking Status: Unknown if ever smoked alcohol intake: never substance use type: denies use current occupational status: other Travel in the last 8 weeks: None household members: family housing: house ROS Obtained: Yes All systems reviewed & no additional complaints except as documented Constitutional Constitutional: Denies chills and Denies fever(s) Integumentary/Breasts Skin/Breast: Denies redness, Denies rash and Denies wounds Neurologic Neurologic: Denies paresthesias Physical Exam General General appearan
[2022-09-01 12:59] VITALS: BP 120/64; PULSE 86; RESP 18; TEMP 36.8
== END 2022-09-01 13:09 | disposition home or self-care (01) ==
LOC: ER 11:33 → UTC 11:34
PROVIDERS: Emergency Provider Nurse Practitioner Family; PCP Nurse Practitioner
DX: S63.502A Unspecified sprain of left wrist, initial encounter (principal); S63.92XA Sprain of unspecified part of left wrist and hand, initial encounter; Y93.K1 Activity, walking an animal; Z88.1 Allergy status to other antibiotic agents
CPT/HCPCS: 73110; 73130; 99212; G0463

== ENCOUNTER 2025-07-09 13:54 | Emergency (ER) | payer OTHER, SELFPAY ==
[2025-07-09] VITALS (7 sets, daily range): BP systolic 100–126; BP diastolic 51–77; PULSE 71–86; RESP 18; TEMP 37–37.6; O2SAT 99–100; BMI 35.6
--- NOTE | 2025-07-09 14:14 | ED_ITS ---
<Statement entered by Yordy Hrud DO - 07/10/25 07:36> I was consulted by the MARITO, and we discussed the complexity of problems being addressed. I approved the treatment and management plan for this patient's care in the emergency department, thus performing a substantive portion of the medical decision making. This patient presented to the emergency department at 8 weeks complaining of nausea and aversion to food without significant vomiting. She was treated conservatively with Benadryl and Zofran as well as 1 L of sodium chloride. At the time of shift change we are pending a transvaginal ultrasound to prove that she has a true intrauterine . This case was handed off to Dr. Tobin who will continue to oversee the MARITO throughout the remainder of this encounter. Yordy Hurd DO Discharge Plan Disposition Patient Disposition: Home, Self-Care Condition: Good Prescriptions Prescriptions: New cephalexin 500 mg capsule 500 mg PO BID 7 Days Qty: 14 0RF pyridoxine (vitamin B6) 25 mg tablet 25 mg PO QID Qty: 120 0RF doxylamine succinate 25 mg tablet 25 mg PO Q6H Qty: 120 0RF No Action Classic 28 mg iron- 800 mcg tablet PO DAILY omeprazole 20 mg capsule,delayed release(DR/EC) 20 mg PO DAILY ferrous fumarate 325 mg (106 mg iron) tablet 325 mg PO BID metronidazole 500 mg tablet 500 mg PO Q12H 7 Days Qty: 14 0RF fluconazole 150 mg tablet 150 mg PO Q3D Qty: 2 0RF drospirenone-ethinyl estradiol [Lo-Zumandimine (28)] 3-0.02 mg tablet 1 tab PO DAILY Qty: 84 2RF Referrals Follow up/Referrals: Rebel Strong III, MD [Referring, Medical] - See instructions Kira Mc APRN [Primary Care Provider, Medical] - See instructions Activity Restrictions/Add. Instructions Additional Instructions/Restrictions: Continue to increase fluids and rest. Please follow-up with your PCP and [facility]. If any other problems or concerns please return to the ED. Clinical Impressions Clinical Impression: Nausea and vomiting during Instructions Patient Instructions: Nausea of (Alternative Therapy) Print Language Print Language: French Discharge ED Provider: Yordy Hurd General Adult HPI <Edwige Rea (ED), YAA - Last Filed: 07/09/25 20:26> General Chief complaint: Weakness Stated complaint: 8 weeks AP, Nausea & dizziness Time Seen by Provider: 07/09/25 14:05 Mode of Arrival: Ambulatory Source of Information: Patient Description of Symptoms (Recalled from ER Triage Doc. by RN): pt presents to the ED with concerns of being dehydrated. pt reports that she has weakness, dizziness, and had nausea. Pt states that she had one episode of vomiting this morning. Denies chest pain and shortness of breath. No recent fever. Pt reports that she is 8 weeks . History of Present Illness HPI narrative: 25-year-old female presents to the ED today for complaint of nausea and weakness and feeling fatigued. She is 8 weeks and says she has been dizzy and not drinking enough water. She has been unable to tolerate food and fluids. She is also a bariatric patient. She says she drinks a lot of water and over the last 2 days she has not been drinking as much. No diarrhea. No other symptoms. No problems with baby Related Data Home Medications ?Medication ?Instructions ?Recorded ?Confirmed ferrous fumarate 325 mg (106 mg 325 mg PO BID 11/28/23 11/28/23 iron) tablet omeprazole 20 mg capsule,delayed 20 mg PO DAILY 11/28/23 release vits no.126-ferrous fum tab PO DAILY 11/28/23 11/28/23 28 mg iron-folic acid 800 mcg tablet (Classic ) Previous Rx's ?Medication ?Instructions ?Recorded drospirenone 3 mg-ethinyl 1 tab PO DAILY #84 tabs 06/11 12/30 estradiol 0.02 mg tablet (Lo-Zumandimine (28)) fluconazole 150 mg tablet 150 mg PO Q3D 2 doses #2 tab s 11/28/23 metronidazole 500 mg tablet 500 mg PO Q12H 7 days #14 tabs 11/28/23 cephalexin 500 mg capsule 500 mg PO BID 7 days #14 cap s 07/09/25 doxylamine succinate 25 mg tablet 25 mg PO Q6H #120 ta bs 07/09/25 pyridoxine (vitamin B6) 25 mg 25 mg PO QID #120 tabs 0 07/09/25 tablet Allergies Allergy/AdvReac Type Severity Reaction Status Date / Time amoxicillin Allergy Verified 11/28/23 15:23 PFS <Edwige Rea (ED), [employer] - Last Filed: 07/09/25 20:26> [facility] Disclaimer: The information contained in this section may have been updated after the patient was seen, as this information can be updated by other users. Medical History (Updated 07/09/25 @ 17:05 by Edwige Rea (ED), [employer]) Recurrent vaginitis Vaginal itching Abnormal uterine bleeding Obesity (BMI 35.0-39.9 without comorbidity) Surgical History H/O gastric sleeve History of wisdom tooth extraction Family History Other Diabetes Heart attack Hyperlipidemia Hypertension Thyroid disorder Social History Smoking Status: Never smoker alcohol intake: never substance use type: denies use current occupational status: employed Travel in the last 8 weeks?: None household members: family housing: house Have you lived/traveled outside US in past 30 days?: No Contact w/someone who lives/traveled outside US past 30 days?: No Exposure to someone with infectious disease in past 14 days?: No Do you have a fever (greater than 100.4 F or 38 C)?: No Have you tested positive for COVID-19?: No Exposed to someone with COVID-19 in past 14 days?: No Do you have a sore throat?: No Do you have a cough?: No Do you have any weakness?: No Do you have any diarrhea?: No Are you experiencing any unusual bleeding?: No Do you have any muscle aches/pain?: No Do you have any abdominal pain?: No Are you experiencing loss of taste or smell?: No Other Medical History Have you received the Flu Vaccine for this season: Yes Have you received the Pneumonia Vaccine: No <Edwige Rea (ED), [employer] - Last Filed: 07/09/25 20:26> ROS Obtained: Yes Systems reviewed as appropriate & no additional complaints except as documented Constitutional Constitutional: Reports as per HPI Physical Exam <Edwige Rea (ED), [employer] - Last Filed: 07/09/25 20:26> General General appearance: alert and in no apparent distress Head Head exam: atraumatic and normocephalic Eye Eye exam: Present PERRL and EOMI ENT ENT exam: Present normal oropharynx and mucous membranes moist Neck Neck exam: Present full ROM and trachea midline Respiratory Respiratory exam: Present normal lung sounds bilaterally Cardiovascular Cardiovascular exam: Present regular rate, normal rhythm, normal heart sounds, +S1 and +S2 Abdominal Exam Abdominal exam: Present soft and normal bowel sounds Extremities Exam Extremities exam: Present full ROM and normal capillary refill Neurological Exam Neurological exam: Present alert, oriented X3 and normal gait Skin Skin exam: Present warm, dry and intact Medical Decision Making <Edwige Rea (ED), [employer] - Last Filed: 07/09/25 20:26> Medical Records Screening: Per USPSTF and CDC recommendations, given the prevalence of disease in our region, it is our hospital?s policy to screen for HIV and viral Hepatitis for all patients aged 18 and over and those with ongoing risk factors. Bhupinder Inquiry Pt receiving controlled substance: No Bhupinder was queried for this patient: No Vital Signs: 07/09/25 14:04 07/09/25 14:07 07/09/25 14:07 Temperature 98.6 F 98.6 F Temperature Source Oral Oral Pulse Rate 86 86 Pulse Rate [Right] 86 Respiratory Rate 18 18 Blood Pressure 126/77 126/77 Blood Pressure [Right Arm] 126/77 Blood Pressure Mean Blood Pressure Mean [Right Arm] 93 Blood Pressure Source Automatic Cuff Blood Pressure Source [Right Arm] Automatic Cuff Blood Pressure Position Supine Blood Pressure Position [Right Arm] Supine 02 Sat by Pulse Oximetry 100 100 100 Oxygen Delivery Method Room Air Room Air 07/09/25 14:14 07/09/25 14:56 07/09/25 15:01 Temperature Temperature Source Pulse Rate 76 82 Pulse Rate [Right] Respiratory Rate Blood Pressure 108/60 L 102/51 L Blood Pressure [Right Arm] Blood Pressure Mean 76 68 Blood Pressure Mean [Right Arm] Blood Pressure Source Blood Pressure Source [Right Arm] Blood Pressure Position Blood Pressure Position [Right Arm] 02 Sat by Pulse Oximetry 100 99 100 Oxygen Delivery Method Room Air 07/09/25 15:30 07/09/25 17:39 Temperature 99.7 F H Temperature Source Pulse Rate 71 80 Pulse Rate [Right] Respiratory Rate 18 Blood Pressure 100/51 L 108/52 L Blood Pressure [Right Arm] Blood Pressure Mean 61 Blood Pressure Mean [Right Arm] Blood Pressure Source Blood Pressure Source [Right Arm] Blood Pressure Position Blood Pressure Position [Right Arm] 02 Sat by Pulse Oximetry 100 Oxygen Delivery Method Lab Data Lab Results 07/09/25 14:28: WBC 6.4, RBC 4.65, Hgb 12.0 L, Hct 36.8 L, MCV 79.1 L, MCH 25.8 L, MCHC 32.6, RDW 13.6, Plt Count 246, MPV 10.1, Neut % (Auto) 86.1 H, Lymph % (Auto) 9.3 L, [place] % (Auto) 4.1, Eos % (Auto) 0.0 L, Baso % (Auto) 0.2, Neut # (Auto) 5.5, Lymph # (Auto) 0.6 L, Het[place]er # (Auto) 0.3, Eos # (Auto) 0.0, Baso # (Auto) 0.0, Total Counted 100, Neutrophils % (Manual) 90 H, Lymphocytes % (Manual) 7 L, Monocytes % (Manual) 2, Basophils % (Manual) 1.0, Platelet Estimate Normal, Giant Platelets 1+, RBC Morphology Not Reportable, Polychromasia 1+, Poikilocytosis 1+, Anisocytosis 1+, Microcytosis 1+, Macrocytosis 1+, Tear Drop Cells 1+, Ovalocytes 1+, Sodium 135 L, Potassium 3.7, Chloride 105, Carbon Dioxide 20 L, Anion Gap 13.7, BUN 9, Creatinine 0.50 L, Estimated Creat Clear 286, Estimated GFR 149, Est GFR ( Amer) 180, G lucose 102 H, Calcium 8.8, Magnesium 1.8, Total Bilirubin 0.6, AST 22, ALT 13, Alkaline Phosphatase 68, Total Protein 6.4, Albumin 3.7, Globulin 2.7, Albumin/Globulin Ratio 1.4, Lipase 105, HCG, Quant [id number] H, HCV Ab REKHA w/Rflx PCR Qn Negative, HIV Ag/Ab Combo Qual Negative 07/09/25 14:35: Urine Color [place], Urine Appearance Sl cloudy, Urine pH 5.5, Ur Specific [place] >= 1.030, Urine Protein 1+ A, Urine Glucose (UA) Negative, Urine Ketones 3+, Urine Blood Negative, Urine Nitrate Negative, Urine Bilirubin 2+ A, Urine Urobilinogen 2.0, Ur Leukocyte Esterase Trace, Urine RBC None, Urine WBC 5-10, Ur Squamous Epith Cells 10-20, Urine Bacteria 1+, Urine Mucus 2+ 07/09/25 14:28 07/09/25 14:28 Orders (Tests/Meds): ED MEDICATIONS Discontinued Medications Generic Name Dose Route Start Last Admin Trade Name Chilo PRN Reason Stop Dose Admin Diphenhydramine HCl 25 mg 07/09/25 14:07/09/25 14:51 Diphenhydramine 50mg/Ml Vial IV 07/09/25 14:10 25 mg ONCE ONE Administration Sodium Chloride 1,000 mls @ 999 mls/hr 07/09/25 14:07/09/25 15:51 Sod Chlor 0.9% 1000ml Bag IV 07/09/25 15:09 Infused .Q1H1M ONE Infusion Ondansetron HCl 4 mg 07/09/25 14:07/09/25 14:52 Ondansetron 4mg/2ml Vial IV 07/09/25 14:10 4 mg ONCE ONE Administration ORDERS Category Date Time Status Beta HCG, Quant [HCG,Quantitative] Stat Lab 07/09/25 14:28 Completed CBC [Complete Blood Count Auto Diff] Stat Lab 07/09/25 14:28 Completed Comprehensive Metabolic Panel Stat Lab 07/09/25 14:28 Completed HIV Combo Stat Lab 07/09/25 14:28 Completed Hepatitis C Ab Qual. W/ RFX Stat Lab 07/09/25 14:28 Completed Lipase Stat Lab 07/09/25 14:28 Completed Magnesium Stat Lab 07/09/25 14:28 Completed Urinalysis-Acute [Urinalysis and Microscopic] Stat Lab 07/09/25 14:35 Completed US OB transvaginal Stat Ultrasound 07/09/25 15:18 Completed Medical Decision Narrative: patient is a 25-year-old female presenting to the emergency department for evaluation of nausea, dizziness, inability to tolerate p.o. fluids. Patient is hemodynamically stable and nontoxic-appearing upon arrival, afebrile. Differential diagnosis includes hyperemesis gravidarum, nausea. Workup will be conducted with hematologic labs, specific imaging. Initial inventions include crystalloid bolus, nausea meds. Patient does feel improved after IV fluids and nausea meds. Her white count was 6.4 today with 137,260 hCG quant. She does have 1+ protein in her urine 2+ bili she has trace leuks today. Patient's ultrasound showed no acute intrauterine complication. Patient feels improved and ready to be discharged. She will follow-up with her PCP. <Dickson Tobin MD - Last Filed: 07/09/25 23:16> Vital Signs: 07/09/25 14:04 07/09/25 14:07 07/09/25 14:07 Temperature 98.6 F 98.6 F Temperature Source Oral Oral Pulse Rate 86 86 Pulse Rate [Right] 86 Respiratory Rate 18 18 Blood Pressure 126/77 126/77 Blood Pressure [Right Arm] 126/77 Blood Pressure Mean Blood Pressure Mean [Right Arm] 93 Blood Pressure Source Automatic Cuff Blood Pressure Source [Right Arm] Automatic Cuff Blood Pressure Position Supine Blood Pressure Position [Right Arm] Supine 02 Sat by Pulse Oximetry 100 100 100 Oxygen Delivery Method Room Air Room Air 07/09/25 14:14 07/09/25 14:56 07/09/25 15:01 Temperature Temperature Source Pulse Rate 76 82 Pulse Rate [Right] Respiratory Rate Blood Pressure 108/60 L 102/51 L Blood Pressure [Right Arm] Blood Pressure Mean 76 68 Blood Pressure Mean [Right Arm] Blood Pressure Source Blood Pressure Source [Right Arm] Blood Pressure Position Blood Pressure Position [Right Arm] 02 Sat by Pulse Oximetry 100 99 100 Oxygen Delivery Method Room Air 07/09/25 15:30 07/09/25 17:39 Temperature 99.7 F H Temperature Source Pulse Rate 71 80 Pulse Rate [Right] Respiratory Rate 18 Blood Pressure 100/51 L 108/52 L Blood Pressure [Right Arm] Blood Pressure Mean 61 Blood Pressure Mean [Right Arm] Blood Pressure Source Blood Pressure Source [Right Arm] Blood Pressure Position Blood Pressure Position [Right Arm] 02 Sat by Pulse Oximetry 100 Oxygen Delivery Method Lab Data Lab Results 07/09/25 14:28: WBC 6.4, RBC 4.65, Hgb 12.0 L, Hct 36.8 L, MCV 79.1 L, MCH 25.8 L, MCHC 32.6, RDW 13.6, Plt Count 246, MPV 10.1, Neut % (Auto) 86.1 H, Lymph % (Auto) 9.3 L, [place] % (Auto) 4.1, Eos % (Auto) 0.0 L, Baso % (Auto) 0.2, Neut # (Auto) 5.5, Lymph # (Auto) 0.6 L, [place] # (Auto) 0.3, Eos # (Auto) 0.0, Baso # (Auto) 0.0, Total Counted 100, Neutrophils % (Manual) 90 H, Lymphocytes % (Manual) 7 L, Monocytes % (Manual) 2, Basophils % (Manual) 1.0, Platelet Estimate Normal, Giant Platelets 1+, RBC Morphology Not Reportable, Polychromasia 1+, Poikilocytosis 1+, Anisocytosis 1+, Microcytosis 1+, Macrocytosis 1+, Tear Drop Cells 1+, Ovalocytes 1+, Sodium 135 L, Potassium 3.7, Chloride 105, Carbon Dioxide 20 L, Anion Gap 13.7, BUN 9, Creatinine 0.50 L, Estimated Creat Clear 286, Estimated GFR 149, Est GFR ( Amer) 180, G lucose 102 H, Calcium 8.8, Magnesium 1.8, Total Bilirubin 0.6, AST 22, ALT 13, Alkaline Phosphatase 68, Total Protein 6.4, Albumin 3.7, Globulin 2.7, Albumin/Globulin Ratio 1.4, Lipase 105, HCG, Quant [id number] H, HCV Ab REKHA w/Rflx PCR Qn Negative, HIV Ag/Ab Combo Qual Negative 07/09/25 14:35: Urine Color [place], Urine Appearance Sl cloudy, Urine pH 5.5, Ur Specific [place] >= 1.030, Urine Protein 1+ A, Urine Glucose (UA) Negative, Urine Ketones 3+, Urine Blood Negative, Urine Nitrate Negative, Urine Bilirubin 2+ A, Urine Urobilinogen 2.0, Ur Leukocyte Esterase Trace, Urine RBC None, Urine WBC 5-10, Ur Squamous Epith Cells 10-20, Urine Bacteria 1+, Urine Mucus 2+ Orders (Tests/Meds): ED MEDICATIONS Discontinued Medications Generic Name Dose Route Start Last Admin Trade Name Freq PRN Reason Stop Dose Admin Diphenhydramine HCl 25 mg 07/09/25 14:07/09/25 14:51 Diphenhydramine 50mg/Ml Vial IV 07/09/25 14:10 25 mg ONCE ONE Administration Sodium Chloride 1,000 mls @ 999 mls/hr 07/09/25 14:07/09/25 15:51 Sod Chlor 0.9% 1000ml Bag IV 07/09/25 15:09 Infused .Q1H1M ONE Infusion Ondansetron HCl 4 mg 07/09/25 14:09 07/09/25 14:52 Ondansetron 4mg/2ml Vial IV 07/09/25 14:10 4 mg ONCE ONE Administration ORDERS Category Date Time Status Beta HCG, Quant [HCG,Quantitative] Stat Lab 07/09/25 14:28 Completed CBC [Complete Blood Count Auto Diff] Stat Lab 07/09/25 14:28 Completed Comprehensive Metabolic Panel Stat Lab 07/09/25 14:28 Completed HIV Combo Stat Lab 07/09/25 14:28 Completed Hepatitis C Ab Qual. W/ RFX Stat Lab 07/09/25 14:28 Completed Lipase Stat Lab 07/09/25 14:28 Completed Magnesium Stat Lab 07/09/25 14:28 Completed Urinalysis-Acute [Urinalysis and Microscopic] Stat Lab 07/09/25 14:35 Completed US OB transvaginal Stat Ultrasound 07/09/25 15:18 Completed Medical Decision Narrative: patient is a 25-year-old female presenting to the emergency department for evaluation of nausea, dizziness, inability to tolerate p.o. fluids. Patient is hemodynamically stable and nontoxic-appearing upon arrival, afebrile. Differential diagnosis includes hyperemesis gravidarum, nausea. Workup will be conducted with hematologic labs, specific imaging. Initial inventions include crystalloid bolus, nausea meds. Patient does feel improved after IV fluids and nausea meds. Her white count was 6.4 today with 137,260 hCG quant. She does have 1+ protein in her urine 2+ bili she has trace leuks today. Patient's ultrasound showed no acute intrauterine complication. Patient feels improved and ready to be discharged. She will follow-up with her PCP. Dickson Tobin: I was consulted by the MARITO, and we discussed the complexity of the problems being addressed. I approved the treatment and management plan for this patient's care in the emergency department, thus performing a substantive portion of the medical decision making. Patient's urinalysis is contaminated and does not have any symptomatic dysuria and urinalysis is not consistent with infection on my interpretation treatment will be deferred at this time. Critical Care <Edwige Rea (ED), [employer] - Last Filed: 07/09/25 20:26> Critical Care Time Critical Care Time: No
--- OUTSIDE RECORDS SUMMARY | 2025-07-09 14:23 | XMS_ITS | Clinical Summary ---
Author Organization [facility] Address [address] [place] [address] Care Team Providers Care Plain [employer]othes Police Officer Name Role Phone Provider, No Known Primary Care Provider Unavail able Allergies Active Allergy Reactions Criticality Noted Date Comments Amoxicillin Swelling High 08/10/2017 Unknown if can tolerate Keflex Medications Mirena, 52 MG, 20 MCG/24HR IUD 02/02/2021 Active Active Problems Problem Noted Date Diagnosed Date Morbid obesity Fatigue Dyspepsia Dyspnea on exertion Anxiety and depression Joint pain RLS (restless legs syndrome) Psoriasis Hypertension Prediabetes Nicotine vapor product user Migraines Overview (03/05/2021): prn Excedrin/Ibuprofen Family History Medical History Relation Name Comments Heart attack Father Hypertension Father Obesity Father Heart attack Maternal Grandfather Hypertension Maternal Grandfather Diabetes Maternal Grandmother Heart attack Maternal Grandmother Hypertension Maternal Grandmother Obesity Maternal Grandmother Diabetes Mother Obesity Mother Diabetes Paternal Grandfather Heart attack Paternal Grandfather Hypertension Paternal Grandfather Sleep apnea Paternal Grandfather Cancer Paternal Grandmother Diabetes Paternal Grandmother Heart attack Paternal Grandmother Hypertension Paternal Grandmother Obesity Paternal Grandmother Relation Name Status Comments Father Maternal Grandfather Maternal Grandmother Mother Paternal Grandfather Paternal Grandmother Social History Tobacco Use Types Packs/Day Years Used Date Smoking Tobacco: Never Smokeless Tobacco: Never Alcohol Use Standard Drinks/Week Comments No 0 (1 standard drink = 0.6 oz pur e alcohol) Abuse Screen Answer Date Recorded Unsafe at Home or Work/School Not on file Feels Threatened by Someone? Not on file 06/2023 Does Anyone Keep You from Co ntacting Others or Doint Things Outside the Home? Not on file 07/18/2023 Physical Sign of Abuse Present Not on file 1 Housing Stability Answer Date Recorded Current Living Arrangements Not on file 06/2023 Potentially Unsafe Housing Conditions Not on ryan e 07/18/2023 Family and Community Support Answer Williams e Recorded Help with Day-to-Day Activities Not on file 07/18/2023 Lonely or Isolated Not on file 07/18/2023 Employment Answer Date Recorded Do you want help finding or keeping work or a radha b? Not on file 07/18/2023 Disabilities Answer Date Recorded Concentrating, Remembering, or Making Decisions Difficulty Not on file 07/18/2023 Doing Errands Independently Difficulty Not on fi le 07/18/2023 Education Answer Date Recorded Help with school or training? Not on file Preferred Language Not on file 07/18/2023 Comments Unknown Sex and Gender Information Value Date Recorded Sex Assigned at Not on file Legal Sex Female 11:22 AM EDT Gender Identity Not on file Sexual Orientation Not on file Last Filed Vital Signs Vital Sign Reading Time Taken Comments Blood Pressure 124/72 03/05/2021 11:40 AM EDT Pulse 95 03/05/2021 11:40 AM EDT Temperature 36.7 C (98 F) 03/05/2021 11:40 AM EDT Respiratory Rate 18 03/05/2021 11:40 AM EDT Oxygen Saturation 98% 03/05/2021 11:40 AM EDT Inhaled Oxygen Concentration - - Weight 144 kg (318 lb 8 oz) 03/05/2021 11:40 AM EDT Height 171.5 cm (5' 7.5 ) 03/05/2021 11:40 AM ED T Body Mass Index 49.15 03/05/2021 11:40 AM EDT Plan of Treatment Health Maintenance Due Date Last Done Comments Annual Gynecologic Pelvic an d Breast Exam 1999 HPV VACCINES (1 - 3-dose series) 2014 ANNUAL PHYSICAL 08/10/2017 HEPATITIS C SCREENING 08/10/2017 TDAP/TD VACCINES (1 - Tdap) 2018 INFLUENZA VACCINE 05/10/2025 Pneumococcal Vaccine 0-49 Aged Out No longer eligible based on patient's age to complete this topic Insurance [facility] PPO Care Teams Plain Clothes Police Officer Relationship Specialty Start Date End Date Provider, [place] [address] PCP - General 01/27/21
[2025-07-09 14:37] LABS: Hematocrit 36.8 % (37.0-47.0); Hemoglobin 12.0 g/dL (12.2-16.2); Immature Granulocytes % 0.3 %; Mean Corpuscular HGB Conc 32.6 g/dL (31.8-35.4); Mean Corpuscular Hemoglobin 25.8 pg (27.0-31.2); Mean Corpuscular Volume 79.1 fl (81-99); Nucleated Red Blood Cells % 0 %; Platelet Count 246 K/mm3 (142-424); Red Blood Count 4.65 M/mm3 (4.20-5.40); Red Cell Distribution Width-SD 38.6 fL; White Blood Count 6.4 K/mm3 (4.8-10.8)
[2025-07-09 14:38] LABS: Microscopic, Urine URINE MICROSCOPIC (MICROSCOPIC)
[2025-07-09 14:49] LABS: Alanine Aminotransferase 13 U/L (12-78); Albumin Level 3.7 g/dl (3.5-5.0); Albumin/Globulin Ratio 1.4 (1.1-1.8); Alkaline Phosphatase 68 U/L (38-126); Anion Gap 13.7 mEq/L (5-15); Aspartate Amino Transferase 22 U/L (14-36); Bilirubin,Total 0.6 mg/dl (0.2-1.3); Blood Urea Nitrogen 9 mg/dl (7-17); Calcium 8.8 mg/dl (8.4-10.2); Carbon Dioxide 20 mmol/L (22.0-30.0); Chloride 105 mmol/L (98-107); Creatinine Clearance Estimated 286 mL/min (50-200); Creatinine,Serum 0.50 mg/dl (0.52-1.04); Estimated Glomerular Filt Rate 149 ml/min (>60); GFR (African American) 180 ML/MIN (>60); Globulin 2.7 g/dL (1.3-3.2); Glucose 102 mg/dl (74-100); Lipase 105 U/L (23-300); Magnesium 1.8 mg/dl (1.6-2.3); Potassium 3.7 mmoL/L (3.5-5.1); Sodium 135 mmol/L (136-145); Total Protein,Serum 6.4 g/dl (6.3-8.2)
[2025-07-09 14:50] LABS: Color,Urine ORANGE (Yellow); Glucose,Urine (UA) Negative (Negative); Ketones,Urine 3+ (Negative); Leukocyte Esterase,Urine TRACE (Negative); PH,Urine 5.5 (5.0-8.5); Protein,Urine 1+ (Negative); Specific Gravity, Urine >= 1.030 (1.005-1.030); Urobilinogen,Urine 2.0 EU/dl (0.2)
[2025-07-09] MEDS: 0.9 % SODIUM CHLORIDE 1000ML 1,000 ML 999 ML IV (14:51)
[2025-07-09] MEDS: ONDANSETRON 4MG/2ML VIAL 4 MG IV (14:52)
[2025-07-09 15:05] LABS: Bilirubin,Urine 2+ (Negative)
--- NOTE | 2025-07-09 15:18 | US_ITS ---
PROCEDURE INFORMATION: Exam: US , Transvaginal Exam date and time: 07/09/2025 3:42 PM Age: 25 years old Clinical indication: Lmp or gestational age (in weeks): 8w0d; Other: Nausea -- dehydration; ; Additional info: location LABS AND CLINICAL REPORTS: Gestational age (Established): 8 w 0 d Estimated due date (Established): 02/18/2026 TECHNIQUE: Imaging protocol: Real-time transvaginal obstetrical ultrasound of the maternal pelvis with image documentation. Transvaginal imaging was used for better evaluation of the fetus, adnexa, and/or cervix. COMPARISON: No relevant prior studies available. FINDINGS: Gestation: Single live intrauterine fetus. Yolk sac measures 6.4 mm. heart rate: 170 bpm BIOMETRY: Gestational age (AUA): 8 w 1 d Estimated due date (AUA): 02/17/2026 Sexton rump length (CRL): 16.9 mm. EGA (CRL) is 8 w 1 d MATERNAL: Right ovary/adnexa: Right ovary measures 3.71 cm x 2.32 cm x 2.82 cm. Right ovarian volume is 12.71 mL. Left ovary/adnexa: Left ovary measures 3.1 cm x 1.61 cm x 2.35 cm. Left ovarian volume is 6.14 mL. No pelvic free fluid. IMPRESSION: Single live intrauterine fetus with AUA of 8 weeks and 1 day and estimated due date of 02/17/2026. No acute intrauterine complication identified.
[2025-07-09 15:58] LABS: Total Cells Counted 100
[2025-07-09 15:59] LABS: Anisocytosis 1+; Macrocytosis 1+; Microcytosis 1+; Ovalocytes 1+; Poikilocytosis 1+; Polychromasia 1+; Tear Drop Cells 1+
[2025-07-09 16:00] LABS: Giant Platelets 1+
[2025-07-09 16:26] LABS: Hepatitis C Ab Qual. W/ RFX NEGATIVE (Negative)
[2025-07-09 16:41] LABS: Bacteria,Urine 1+ /lpf
[2025-07-09 16:42] LABS: Mucus,Urine 2+ /lpf
== END 2025-07-09 17:57 | disposition home or self-care (01) ==
PROVIDERS: Nurse Practitioner; Emergency Provider Student in an Organized Health Care Education/Training Program; PCP Nurse Practitioner
DX: O21.9 Vomiting of pregnancy, unspecified (principal); E87.1 Hypo-osmolality and hyponatremia; R42 Dizziness and giddiness; Z3A.08 8 weeks gestation of pregnancy
CPT/HCPCS: 76817; 80053; 81001; 83690; 83735; 84702; 85007; 85025; 86803; 87389; 96361; 96374; 96375; 99285; J1200; J2405; J7030